=== PATIENT | female | born 1970 | race Caucasian/White ===

== ENCOUNTER → 2016-08-28 | Outpatient (CLI) | payer BC ==
--- NOTE | 2016-08-29 07:53 | MM ---
Reason for exam: screening (asymptomatic). Last mammogram was performed 2 years and 11 months ago. History: Family history of breast cancer in sister at age 44. Benign ultrasound-guided core biopsy of the right breast, October 01, 2001. Cyst aspiration of the right breast. Core biopsy of the right breast. Physical Findings: A clinical breast exam by your physician is recommended on an annual basis and results should be correlated with mammographic findings. MG Screening Mammo w CAD Bilateral CC and MLO view(s) were taken. Prior study comparison: September 23, 2013, bilateral MG diagnostic mammo w CAD BIRDIE. May 29, 2012, bilateral digital screening mammo w/CAD. The breast tissue is heterogeneously dense. This may lower the sensitivity of mammography. There is no discrete abnormality. No significant changes when compared with prior studies. ASSESSMENT: Negative, BI-RAD 1 RECOMMENDATION: Routine screening mammogram of both breasts in 1 year.
== END | disposition home or self-care (01) ==
LOC: RADMAMWWP 07:43
PROVIDERS: ATTEND Family Medicine
DX: Z12.31 Encounter for screening mammogram for malignant neoplasm of breast (principal)

== ENCOUNTER → 2018-04-09 | Outpatient (CLI) | payer BC ==
--- NOTE | 2018-04-09 08:55 | MM ---
Reason for exam: clinical finding. Last mammogram was performed 1 year and 7 months ago. History: Benign ultrasound-guided core biopsy of the right breast, October 01, 2001. Cyst aspiration of the right breast. Core biopsy of the right breast. Physical Findings: Nurse Summary: 1cm nodule in the left breast at 12 o'clock (nurse dw). MG 3D Diag Mammo W/Cad BIRDIE Bilateral CC and MLO view(s) were taken. LM, CC with magnification, and LM with magnification view(s) were taken of the right breast. Prior study comparison: August 28, 2016, bilateral MG screening mammo w CAD. September 23, 2013, bilateral MG diagnostic mammo w CAD BIRDIE. The breast tissue is extremely dense which could obscure a lesion on mammography. There is a 4mm group of linear calcifications in the upper outer quadrant at middle depth. On magnification views these appear linear and pleomorphic. These results were verbally communicated with the patient and result sheet given to the patient on 04/09/18. ASSESSMENT: Suspicious, BI-RAD 4 RECOMMENDATION: Stereotactic core biopsy of the right breast. Called Dr. Pollard with mammographic findings and has scheduled an appointment for the patient for 05/02/18 at 11:[address] Kaur. Biopsy scheduled for 05/07/18 at 8:00. PRELIMINARY REPORT CALLED AND FAXED TO DR. KAUR ON 04/09/18.
--- NOTE | 2018-04-09 08:57 | USB ---
Reason for exam: clinical finding. History: Benign ultrasound-guided core biopsy of the right breast, October 01, 2001. Cyst aspiration of the right breast. Core biopsy of the right breast. US Breast LT Left complete breast ultrasound includes all four quadrants, the retroareolar region and axilla. Finding demonstrates no cystic or solid lesion seen. Dense tissue seen at BB. Islands of dense fibroglandular tissue throughout corresponding to the palpable. No suspicious mass. These results were verbally communicated with the patient and result sheet given to the patient on 04/09/18. ASSESSMENT: Benign, BI-RAD 2 RECOMMENDATION: Routine screening mammogram of both breasts in 1 year. Manage patient on a clinical basis.
== END ==
LOC: RADMAMWWP 06:46
PROVIDERS: ATTEND Family Medicine
DX: N63.20 Unspecified lump in the left breast, unspecified quadrant (principal)
CPT/HCPCS: 77062; 77066

== ENCOUNTER → 2018-05-02 | Outpatient (CLI) | payer BC ==
[2018-05-02 08:25] VITALS: BP 105/62; PULSE 68; RESP 18; TEMP 97.4; BMI 22.2
--- NOTE | 2018-05-02 09:04 | P.GSHP ---
History of Present Illness H&P Date: 05/02/18 Chief Complaint: nodule in the left breast for 1 month Kristin is a 47-year-old female who presents with a complaint of a palpable nodule in the left breast at approximately 12 o'clock position. Her last mammogram was in August 2016. She had a bilateral mammogram and an ultrasound of the left breast performed in March 2018. The patient on nurse examination was noted to have a 1 cm nodule in the left breast at the 12 o'clock position. The patient states that this area remains palpable and she had noted at approximately a month before. The patient's menstrual periods have become somewhat irregular and she missed a period for 3 months but then most recently had a menstrual period approximately a week ago. The palpable abnormality remains present after her period. The patient on mammogram was noted to have a 4 mm groove of linear calcifications in the upper outer quadrant of the right breast. The patient was recommended to have a stereotactic core biopsy of this area. The patient had no lesions of concern noted on the mammogram in the left breast and an ultrasound was performed of the left breast which did not reveal any specific lesions of concern. The patient has no history of any trauma or infection in her breast. The actual area of nodularity does not seem to be tender. Family history: no history of cancer Hormonal History: menarche: 13 : 3, 3 children, first at 21, breast fed: no pain and bleeding menopause: periods are irregular at this time control pills: less than one year hormones: none History: Negative Medical history: 9 negative Social history: Smoking: Negative Alcohol: Negative Drugs:negative - Constitutional Comment: light night sweats Constitutional: Reports night sweats - EENT Comment: wears glasses Eyes: denies blurred vision, denies pain Ears: deny: decreased hearing, tinnitus Ears, nose, mouth and throat: Denies headache, Denies sore throat - Breasts Breasts: bilateral: as per HPI - Cardiovascular Comment: Muscular chest wall pain after lifting at times Cardiovascular: Denies chest pain, Denies shortness of breath - Respiratory Respiratory: Denies cough, Denies 7 - Gastrointestinal Gastrointestinal: Denies abdominal pain, Denies diarrhea, Denies nausea, Denies vomiting - Genitourinary (Female) Genitourinary: Denies dysuria, Denies hematuria - Menstruation Menstruation: Reports cycle variable - Musculoskeletal Musculoskeletal: Denies myalgias - Integumentary Integumentary: Denies pruritus, Denies rash - Neurological Neurological: Denies numbness, Denies weakness - Psychiatric Psychiatric: Denies anxiety, Denies depression - Endocrine Endocrine: Denies fatigue, Denies weight change - Hematologic/Lymphatic Comment: none - Allergic/Immunologic Comment: PCN Allergic/Immunologic: Reports seasonal allergies Past Medical History Past Medical History: No Reported History Additional Past Medical History / Comment(s): Anemia, low iron History of Any Multi-Drug Resistant Organisms: None Reported Past Surgical History: No Surgical Hx Reported Past Anesthesia/Blood Transfusion Reactions: Motion Sickness Smoking Status: Never smoker Past Alcohol Use History: Occasional Past Drug Use History: None Reported Medications and Allergies Home Medications Medication Instructions Recorded Confirmed Type No Known Home Medications 04/26/18 04/26/18 History Allergies Allergy/AdvReac Type Severity Reaction Status Date / Time Penicillins Allergy Rash/Hives Verified 05/02/18 08:25 Surgical - Exam Vital Signs Temp Pulse Resp BP Pulse Ox 97.4 F L 68 18 105/62 99 05/02/18 08:17 05/02/18 08:17 05/02/18 08:17 05/02/18 08:17 05/02/18 08:17 BMI 22.3 - General well developed, well nourished, no distress - Eyes normal ocular movement, no icteric - ENT normal pinna, normal nares, no hearing loss - Neck no masses, trachea midline - Respiratory normal respiratory effort, clear to auscultation - Cardiovascular Rhythm: regular Heart Sounds: normal: S1, S2 - Abdomen Abdomen: soft, non tender, no guarding, no rigid, no rebound - Integumentary Breast examination: Right breast: Multi-positional exam no dominant masses or nodules of concern Right axilla: No adenopathy of concern Left breast: Multi-positional exam increased nodularity at the 12 o'clock position Left axilla: No adenopathy of concern Normal turger - Neurologic no disoriented, no combative - Musculoskeletal normal gait, normal posture - Psychiatric oriented to time, oriented to person, oriented to place, speech is normal, memory intact Breast examination: Right breast: Multi-positional exam no dominant masses or nodules of concern Right axilla: No adenopathy of concern Left breast: Multi-positional exam increased nodularity at the 12 o'clock position Left axilla: No adenopathy of concern Results Mammogram and ultrasound of breast reviewed Assessment and Plan Assessment: Impression: 1. 47-year-old perimenopausal female with palpable abnormality in left breast 2. Radiographic abnormality right breast Plan: 1. Core biopsy of palpable abnormality left breast 2. Stereotactic core biopsy radiographic abnormality right breast The risk and benefits of both core biopsy of palpable abnormality and stereotactic core biopsy were discussed with the patient. She wishes to proceed in this is scheduled for the near future. The patient will follow-up approximately a week after the biopsies for the results. Cc: Dr. Pollard
== END | disposition home or self-care (01) ==
LOC: WWCWWP 08:07
PROVIDERS: ATTEND Surgery
DX: Z53.9 Procedure and treatment not carried out, unspecified reason (principal)

== ENCOUNTER → 2018-05-07 | Day surgery (SDC) | payer BC ==
[2018-05-07 07:31] VITALS: RESP 16; BMI 22.2
--- NOTE | 2018-05-07 08:38 | P.OP ---
Date of Procedure: 05/07/18 Preoperative Diagnosis: 4 mm linear calcifications upper outer quadrant middle depth of the right breast Postoperative Diagnosis: Same Procedure(s) Performed: Right breast stereotactic core biopsy Anesthesia: local Surgeon: Erlinda Kaur Pathology: other (Breast tissue) Condition: stable Disposition: same day Indications for Procedure: Mammographic abnormality Description of Procedure: Kristin is a 47-year-old female who was noted to have linear calcifications in the right breast which were of concern. It was recommended she undergo a stereotactic core biopsy. Risk and benefits of the procedure were discussed with the patient. She wished to proceed. The patient was taken to the stereotactic core biopsy room. She was positioned on the low rad table such that the lesion which was in the right breast in the upper outer quadrant area approximately middle depth could be targeted. The approach was a lateral to medial approach. After the lesion had been identified it was targeted on the stereo unit. The skin was prepped using Betadine. 20 mL of 1% lidocaine were used to anesthetize the area of concern. The needle was driven to the correct coordinates of both pre-and post fire films were obtained. The location of the needle was correct. Approximately 12 core samples were obtained. Radiograph of the samples revealed the area of concern had been removed showing calcification within the sample. A 9-gauge vacuum-assisted rotating core biopsy needle was utilized. Following this a secure marked Top-investigative reporter was placed and noted to be in the correct location. Patient tolerated procedure in stable condition. The specimen was sent to pathology. The patient will follow with Dr. Morejon in 1 week. Cc: Dr. Pollard
[2018-05-07 09:07] VITALS: BP 95/61; PULSE 72; TEMP 98.1
--- NOTE | 2018-05-07 10:33 | MM ---
EXAMINATION TYPE: MG stereo VAD BX RT DATE OF EXAM: 05/07/2018 COMPARISON: Prior mammogram April 09, 2018 and older studies. CLINICAL HISTORY: Abnormal mammogram. TECHNIQUE: Stereotactic guided core biopsy of right breast. FINDINGS: The procedure of stereotactic guided core biopsy was explained to the patient. Benefits, a lternatives, and risks were discussed. An informed consent was then obtained. [facility] was [facility]. Shortness pathway was cranial approach. I performed the localization, then surgeon, Dr. Kaur performed the remainder of the procedure. A vacuum BioStratum biopsy gun was used to obtain multiple core samples. The patient tolerated the procedure well without any immediate complication. The patient was kept in the radiology department for short stay after the procedure and then discharged home in stable condi tion. Targeted calcifications are identified in specimen mammogram. Post biopsy mammogram shows the clip to appear in satisfactory position relative to the targeted area of concern on the preprocedure images. IMPRESSION: SUCCESSFUL, UNCOMPLICATED STEREOTACTIC GUIDED CORE BIOPSY OF AREA OF CONCERN IN THE RIGHT BREAST, FUL L PATHOLOGY RESULTS TO FOLLOW. Low to intermediate index of suspicion noted at time of procedure.
== END | disposition home or self-care (01) ==
LOC: RADMAMWWP 07:10
PROVIDERS: ATTEND Surgery
DX: N60.21 Fibroadenosis of right breast (principal); N60.01 Solitary cyst of right breast; Z88.0 Allergy status to penicillin
CPT/HCPCS: 88305; 19081; J2001

== ENCOUNTER → 2018-05-16 | Outpatient (CLI) | payer BC ==
[2018-05-16 08:38] VITALS: BP 109/61; PULSE 79; RESP 18; TEMP 96.9; BMI 21.4
--- NOTE | 2018-05-16 09:32 | P.PN ---
Subjective Progress Note Date: 05/16/18 Kristin is a 47-year-old white female status post right breast stero-tactic core biopsy. Pathology was benign revealing fibrocystic changes and calcifications. The patient states she has had some mild discomfort at the biopsy site but this is improved. Objective - Vital Signs Vital signs: Vital Signs Temp 96.9 F L 05/16/18 08:33 Pulse 79 05/16/18 08:33 Resp 18 05/16/18 08:33 BP 109/61 05/16/18 08:33 Pulse Ox 98 05/16/18 08:33 Intake & Output 05/15/18 05/16/18 05/16/18 18:59 06:59 18:59 Weight 49.895 kg - Constitutional General appearance: Present: average body habitus - EENT Eyes: Present: EOMI ENT: Present: hearing grossly normal - Respiratory Respiratory: bilateral: CTA - Cardiovascular Rhythm: regular Heart sounds: normal: S1, S2 - Integumentary Integumentary Comment(s): Stero biopsy puncture site right breast mild ecchymosis otherwise clean and dry no evidence of any hematoma of concern or any infection - Psychiatric Psychiatric: Present: A&O x's 3, appropriate affect, intact judgment & insight Assessment and Plan Assessment: Impression: 1. Patient status post her biopsy right breast comes for results pathology benign 2. Patient doing well at this time Plan: 1. Repeat right breast mammogram in 6 months time with physician exam at that time Cc: Dr. Pollard
== END ==
LOC: WWCWWP 08:22
PROVIDERS: ATTEND Surgery
DX: Z53.9 Procedure and treatment not carried out, unspecified reason (principal)

== ENCOUNTER → 2018-11-05 | Outpatient (CLI) | payer BC ==
--- NOTE | 2018-11-05 07:36 | MM ---
Reason for exam: follow-up at short interval from prior study. Last mammogram was performed 7 months ago. History: Patient is postmenopausal. Benign MG stereo VAD BX RT of the right breast, May 07, 2018. Benign ultrasound-guided core biopsy of the right breast, October 01, 2001. Cyst aspiration of the right breast. Core biopsy of the right breast. Physical Findings: Nurse did not find any significant physical abnormalities on exam. MG Diagnostic Mammo RT w CAD CC and MLO view(s) were taken of the right breast. Prior study comparison: April 09, 2018, bilateral MG 3d diag mammo w/cad BIRDIE. August 28, 2016, bilateral MG screening mammo w CAD. The breast tissue is heterogeneously dense. This may lower the sensitivity of mammography. No significant new findings when compared with previous films. These results were verbally communicated with the patient and result sheet given to the patient on 11/05/18. ASSESSMENT: Benign, BI-RAD 2 RECOMMENDATION: Routine screening mammogram of both breasts in 6 months. Back on schedule.
== END | disposition home or self-care (01) ==
LOC: RADMAMWWP 06:52
PROVIDERS: ATTEND Surgery
DX: R92.8 Other abnormal and inconclusive findings on diagnostic imaging of breast (principal)
CPT/HCPCS: 77065

== ENCOUNTER → 2018-11-14 | Outpatient (CLI) | payer BC ==
--- NOTE | 2018-11-14 14:14 | P.PN ---
Subjective Progress Note Date: 11/14/18 Kristin is a 48-year-old female who underwent a stereotactic core biopsy in April 2018. Pathology was benign. She presents today having had a repeat right breast mammogram. Repeat right breast mammogram was done on . This was felt to be benign BIRADS 2 and repeat bilateral mammogram in 6 months recommended. The pathology was fibrocystic changes including sclerosing adenosis, cyst, fibrosis and calcifications. The patient has no complaints related to her breasts. Family History: no cancer Hormonal history: Menarche:12 , breast fed: short time, age at first : 21 periods LMP MARCH BCP: less than one year hormones: none Surgical history: Negative Medical history: Negative Social history: Smoking: Negative Alcohol: Negative Drugs: Negative Review of systems: HEENT: Wears glasses Lungs: Negative Heart: Negative however did have muscular chest pain after lifting at times GI: Negative : Negative Musculoskeletal: Negative Skin: Negative Neurologic: Negative Psychiatric: Negative Endocrine: Negative ALLERGIES: Seasonal, PCN Objective - Vital Signs Vital signs: Vital Signs Temp 98.1 F 11/14/18 13:42 Pulse 60 11/14/18 13:42 Resp 16 11/14/18 13:42 BP 108/67 11/14/18 13:42 Pulse Ox 100 11/14/18 13:42 Intake & Output 11/13/18 11/14/18 11/14/18 18:59 06:59 18:59 Weight 51.71 kg - Exam BMI 22.3 - Constitutional General appearance: Present: average body habitus - EENT Eyes: Present: EOMI ENT: Present: hearing grossly normal - Neck Neck: Present: normal ROM - Respiratory Respiratory: bilateral: CTA - Cardiovascular Rhythm: regular Heart sounds: normal: S1, S2 - Gastrointestinal General gastrointestinal: Present: soft - Integumentary Integumentary: Present: normal turgor - Musculoskeletal Musculoskeletal: Present: gait normal - Psychiatric Psychiatric: Present: A&O x's 3, appropriate affect, intact judgment & insight - Additional findings Additional findings: breast exam: right breast: Multi-positional exam no dominant masses or nodules of concern, well-healed scar from prior stereotactic core biopsy Right axilla: No adenopathy of concern Left breast: Multi-positional exam dominant masses or nodules of concern Left axilla: No adenopathy of concern Assessment and Plan Assessment: Impression: 1. Fibrocystic breast changes 2. Prior stereotactic core biopsy Plan: 1. Repeat bilateral mammogram in 6 months to be back on schedule 2. Follow-up in 6 months 2. Follow up sooner if any questions of concern CC:Dr. Meghana Pollard
== END | disposition home or self-care (01) ==
DX: Z53.9 Procedure and treatment not carried out, unspecified reason (principal)

== ENCOUNTER → 2019-05-08 | Outpatient (CLI) | payer BC ==
--- NOTE | 2019-05-09 11:08 | MM ---
Reason for exam: screening (asymptomatic). Last mammogram was performed 6 months ago. History: Patient is postmenopausal. Benign MG stereo VAD BX RT of the right breast, May 07, 2018. Benign ultrasound-guided core biopsy of the right breast, October 01, 2001. Cyst aspiration of the right breast. Core biopsy of the right breast. Physical Findings: A clinical breast exam by your physician is recommended on an annual basis and results should be correlated with mammographic findings. MG Screening Mammo w CAD Bilateral CC and MLO view(s) were taken. Prior study comparison: November 05, 2018, right breast MG diagnostic mammo RT w CAD. April 09, 2018, bilateral MG 3d diag mammo w/cad BIRDIE. The breast tissue is extremely dense which could obscure a lesion on mammography. No suspicious abnormality. Right biopsy marker noted. No significant changes when compared with prior studies. ASSESSMENT: Negative, BI-RAD 1 RECOMMENDATION: Routine screening mammogram of both breasts in 1 year.
== END ==
LOC: RADMAMWWP 07:57
PROVIDERS: ATTEND Surgery
DX: Z12.31 Encounter for screening mammogram for malignant neoplasm of breast (principal)
CPT/HCPCS: 77067

== ENCOUNTER → 2019-05-22 | Outpatient (CLI) | payer BC ==
[2019-05-22 09:09] VITALS: BP 103/66; PULSE 79; RESP 16; TEMP 98.1
--- NOTE | 2019-05-22 09:22 | P.PN ---
Subjective Progress Note Date: 05/22/19 Principal diagnosis: fibrocystic breast changes/pain left breast Kristin is a 48-year-old female who underwent a stereotactic core biopsy in April 2018. Pathology was benign. She presents today having had a repeat right breast mammogram. [place] [address]. This was felt to be benign BIRADS 2 and repeat bilateral mammogram in 6 months recommended. The pathology was fibrocystic changes including sclerosing adenosis, cyst, fibrosis and calcifications. The patient has no complaints related to her breasts. She had a bilateral mammogram performed on . This was benign BIRADS 1. The patient was noted in the right breast at the biopsy marker from her prior stereotactic core biopsy site. She does complain of transiet sharp pain in the left breast about once a month. She is not sure if it is related to anything. She had not had a period for 5 months. It is not cyclical. It does not spread any place. It is only when laying on her stomach. She is uncertain as to how long it has been going on. She does not complain of any lumps masses or nipple discharge. Caffeine: once a day nicotine: none chocolate: daily Family History: no cancer Hormonal history: Menarche:12 , breast fed: short time, age at first : 21 periods LMP November 2018 BCP: less than one year hormones: none Surgical history: stero biopsy of right breast Medical history: Negative Social history: Smoking: Negative Alcohol: Negative Drugs: Negative Review of systems: HEENT: Wears glasses Lungs: Negative Heart: Negative however did have muscular chest pain after lifting at times breast : as per HPI GI: Negative : Negative Musculoskeletal: Negative Skin: Negative Neurologic: Negative Psychiatric: Negative Endocrine: Negative ALLERGIES: Seasonal, PCN Objective - Vital Signs Vital signs: Intake & Output 05/21/19 05/22/19 05/22/19 18:59 06:59 18:59 Weight 49.895 kg - Exam BMI 21.5 - Constitutional General appearance: Present: average body habitus - EENT Eyes: Present: EOMI ENT: Present: hearing grossly normal - Neck Neck: Present: normal ROM - Respiratory Respiratory: bilateral: CTA - Cardiovascular Rhythm: regular Heart sounds: normal: S1, S2 - Gastrointestinal General gastrointestinal: Present: normal bowel sounds, soft - Integumentary Integumentary: Present: normal turgor - Musculoskeletal Musculoskeletal: Present: gait normal - Psychiatric Psychiatric: Present: A&O x's 3, appropriate affect, intact judgment & insight - Additional findings Additional findings: breast exam: BRA 32B inspection: No nipple inversion, no skin changes of concern Palpation: Right breast: Multiple positional exam no dominant masses or nodules of concern fibrocystic changes Right axilla: No adenopathy of concern Left breast: Multi-positional exam or dominant mass or notches of concern fibrocystic changes Left axilla: No adenopathy of concern Assessment and Plan Assessment: Impression: 1. Bilateral mammogram results reviewed recommendation repeat mammogram in 1 year 2. Fibrocystic breast changes 3. Left breast fleeting discomfort most likely fibrocystic in nature 4. Perimenopausal Plan: 1. FSH and LH levels 2. Bilateral mammogram in 1 year 3. To call if notes any areas of concern in her breast We discussed causes of fibrocystic breast discomfort which would include caffeine and chocolate intake. The patient understands and will consider this. CC: Dr. Pollard encounter 20 minutes, > 50% of time in planning and counselling Time with Patient: Less than 30
[2019-05-22 16:48] LABS: Follicle Stimulating Hormone 90.5 mIU/mL; Luteinizing Hormone 49.9 mIU/mL
== END | disposition home or self-care (01) ==
LOC: WWCWWP 08:52
PROVIDERS: ATTEND Surgery
DX: N95.9 Unspecified menopausal and perimenopausal disorder (principal)
CPT/HCPCS: 36415; 83001; 83002

== ENCOUNTER → 2020-05-12 | Outpatient (CLI) | payer BC ==
--- NOTE | 2020-05-13 13:21 | MM ---
Reason for exam: screening (asymptomatic). Last mammogram was performed 1 year ago. History: Patient is postmenopausal. Benign MG stereo VAD BX RT of the right breast, May 07, 2018. Benign ultrasound-guided core biopsy of the right breast, October 01, 2001. Cyst aspiration of the right breast. Core biopsy of the right breast. Physical Findings: A clinical breast exam by your physician is recommended on an annual basis and results should be correlated with mammographic findings. MG Screening Mammo w CAD Bilateral CC and MLO view(s) were taken. Prior study comparison: May 08, 2019, bilateral MG screening mammo w CAD. November 05, 2018, right breast MG diagnostic mammo RT w CAD. The breast tissue is heterogeneously dense. This may lower the sensitivity of mammography. Previous mammotome biopsy in the right breast. No significant changes when compared with prior studies. ASSESSMENT: Benign, BI-RAD 2 RECOMMENDATION: Routine screening mammogram of both breasts in 1 year.
== END | disposition home or self-care (01) ==
LOC: RADMAMWWP 07:43
PROVIDERS: ATTEND Surgery
DX: Z12.31 Encounter for screening mammogram for malignant neoplasm of breast (principal)
CPT/HCPCS: 77067

== ENCOUNTER → 2020-05-13 | Outpatient (CLI) | payer BC ==
[2020-05-13 10:50] VITALS: BP 106/64; PULSE 65; RESP 16; TEMP 97.9
--- NOTE | 2020-05-13 11:06 | P.PN ---
Subjective Progress Note Date: 05/13/20 Principal diagnosis: fibrocystic breast changes fibrocystic breast changes/pain left breast Kristin is a 48-year-old female who underwent a stereotactic core biopsy in April 2018. Pathology was benign. She presents today having had a repeat right breast mammogram. [place] [address]. This was felt to be benign BIRADS 2 and repeat bilateral mammogram in 6 months recommended. The pathology was fibrocystic changes including sclerosing adenos is, cyst, fibrosis and calcifications. The patient has no complaints related to her breasts. She had a bilateral mammogram performed on . This was benign BIRADS 2. The patient was noted in the right breast at the biopsy marker from her prior stereotactic core biopsy site. She has dense breast. She does not complain of any lumps, masses, or nodules in her breast. No nipple discharge or changes. Transiet sharp pain in the left breast about once a month noted a year ago has resolved. She had not had a period for 12 months. It is not cyclical. FSH done 05-22-19 was 90.5, and LH 49.9. Caffeine: once a day, 2 cups of coffee/day nicotine: none chocolate: daily Family History: no cancer Hormonal history: Menarche:12 , breast fed: short time, age at first : 21 periods LMP November 2018 BCP: less than one year hormones: none Surgical history: stero biopsy of right breast Medical history: Negative Social history: Smoking: Negative Alcohol: Negative Drugs: Negative Review of systems: HEENT: Wears glasses Lungs: Negative Heart: Negative however did have muscular chest pain after lifting at times breast : as per HPI GI: Negative : Negative Musculoskeletal: Negative Skin: Negative Neurologic: Negative Psychiatric: Negative Endocrine: Negative ALLERGIES: Seasonal, PCN Objective - Vital Signs Vital signs: Vital Signs Temp 97.9 F 05/13/20 10:44 Pulse 65 05/13/20 10:44 Resp 16 05/13/20 10:44 BP 106/64 05/13/20 10:44 Pulse Ox 99 05/13/20 10:44 Intake & Output 05/12/20 05/13/20 05/13/20 18:59 06:59 18:59 Weight 51.256 kg - Exam BMI 22.8 - Constitutional General appearance: Present: average body habitus - EENT Eyes: Present: EOMI ENT: Present: hearing grossly normal - Neck Neck: Present: normal ROM - Respiratory Respiratory: bilateral: CTA - Cardiovascular Rhythm: regular Heart sounds: normal: S1, S2 - Gastrointestinal General gastrointestinal: Present: normal bowel sounds, soft - Integumentary Integumentary: Present: normal turgor - Musculoskeletal Musculoskeletal: Present: gait normal - Psychiatric Psychiatric: Present: A&O x's 3, appropriate affect, intact judgment & insight - Additional findings Additional findings: breast exam: BRA 34B inspection: grade 2 ptosis bilateral palpation: Breasts: Multiple positional exam fibrocystic changes, no dominant masses or nodules of concern, dense breast Right axilla: No adenopathy of concern Left breast: Multiple positional exam fibrocystic changes, no dominant masses or nodules of concern, dense breast Left axilla: No adenopathy of concern Assessment and Plan Assessment: Impression: 1. Fibrocystic breast changes 2. Postmenopausal Plan: 1. Repeat bilateral mammogram suggest 3-D secondary to dense breast in 1 year with physician exam 2. We discussed caffeine possibly exacerbating fibrocystic changes and would recommend lifestyle modification Cc: Dr. Pollard encounter 15 minutes, > 50% of time in planning and counselling
== END | disposition home or self-care (01) ==
LOC: WWCWWP 10:29
PROVIDERS: ATTEND Surgery
DX: Z53.9 Procedure and treatment not carried out, unspecified reason (principal)

== ENCOUNTER → 2021-01-10 | Outpatient (CLI) | payer BC ==
--- NOTE | 2021-01-11 08:16 | XR ---
EXAMINATION TYPE: XR thoracic spine complete DATE OF EXAM: 01/10/2021 COMPARISON: NONE HISTORY: Pain TECHNIQUE: 3 views submitted FINDINGS: Alignment is anatomic. There is no compression deformities. Vertebral body height and disc interspa [place] are maintained. Minimal curvature of the spine. Multilevel mild degenerative disc disease and hy pertrophic spurring. IMPRESSION: 1. Multilevel mild degenerative disc disease..
== END | disposition home or self-care (01) ==
LOC: RADXRMAIN 16:56
PROVIDERS: ATTEND Family Medicine
DX: M51.34 Other intervertebral disc degeneration, thoracic region (principal)
CPT/HCPCS: 72072

== ENCOUNTER → 2021-05-23 | Outpatient (CLI) | payer BC ==
--- NOTE | 2021-05-24 10:30 | MM ---
Reason for exam: screening (asymptomatic). Last mammogram was performed 1 year ago. History: Patient is postmenopausal. Benign MG stereo VAD BX RT of the right breast, May 07, 2018. Benign ultrasound-guided core biopsy of the right breast, October 01, 2001. Cyst aspiration of the right breast. Core biopsy of the right breast. Physical Findings: A clinical breast exam by your physician is recommended on an annual basis and results should be correlated with mammographic findings. MG 3D Screening Mammo W/Cad Bilateral CC and MLO view(s) were taken. XCCL view(s) were taken of the left breast. Prior study comparison: May 12, 2020, bilateral MG screening mammo w CAD. May 08, 2019, bilateral MG screening mammo w CAD. The breast tissue is heterogeneously dense. This may lower the sensitivity of mammography. Stable benign calcifications. There is no discrete abnormality. No significant changes when compared with prior studies. ASSESSMENT: Benign, BI-RAD 2 RECOMMENDATION: Routine screening mammogram of both breasts in 1 year.
== END | disposition home or self-care (01) ==
LOC: RADMAMWWP 13:03
PROVIDERS: ATTEND Surgery
DX: Z12.31 Encounter for screening mammogram for malignant neoplasm of breast (principal); Z78.0 Asymptomatic menopausal state
CPT/HCPCS: 77063; 77067

== ENCOUNTER → 2021-06-02 | Outpatient (CLI) | payer BC ==
[2021-06-02 16:29] VITALS: BP 93/60; PULSE 68; RESP 18; TEMP 97.9
--- NOTE | 2021-06-02 16:37 | P.PN ---
Subjective Progress Note Date: 06/02/21 Principal diagnosis: fibrocystic breast changes fibrocystic breast changes fibrocystic breast changes/pain left breast Kristin is a 50-year-old female who underwent a stereotactic core biopsy in April 2018. Pathology was benign. She had a bilateral mammogram performed on . This was benign BIRADS 2. She does not complain of any lumps, masses, or nodules in her breast. No nipple discharge or changes. She had a bilateral mammogram on 05-23-21 which was benign BIRAD 2. She does not have any lumps masses or nodules she is concerned about. Caffeine: once a day, 2 cups of coffee/day nicotine: none chocolate: daily Family History: no cancer Hormonal history: Menarche:12 , breast fed: short time, age at first : 21 periods LMP November 2018 BCP: less than one year hormones: none Surgical history: stero biopsy of right breast Medical history: Negative Social history: Smoking: Negative Alcohol: Negative Drugs: Negative Review of systems: HEENT: Wears glasses Lungs: Negative Heart: Negative however did have muscular chest pain after lifting at times breast : as per HPI GI: Negative : Negative Musculoskeletal: Negative Skin: Negative Neurologic: Negative Psychiatric: Negative Endocrine: Negative ALLERGIES: Seasonal, PCN Objective - Vital Signs Vital signs: Vital Signs Temp 97.9 F 06/02/21 16:23 Pulse 68 06/02/21 16:23 Resp 18 06/02/21 16:23 BP 93/60 06/02/21 16:23 Pulse Ox 97 06/02/21 16:23 Intake & Output 06/01/21 06/02/21 06/02/21 18:59 06:59 18:59 Weight 51.71 kg - Exam BMI 23 - Constitutional General appearance: Present: cooperative - EENT Eyes: Present: EOMI ENT: Present: hearing grossly normal - Neck Neck: Present: normal ROM - Respiratory Respiratory: bilateral: CTA - Cardiovascular Rhythm: regular Heart sounds: normal: S1, S2 - Gastrointestinal General gastrointestinal: Present: soft - Integumentary Integumentary: Present: normal turgor - Musculoskeletal Musculoskeletal: Present: gait normal - Psychiatric Psychiatric: Present: A&O x's 3, appropriate affect, intact judgment & insight - Additional findings Additional findings: Breast Exam: BRA: 34A inspection: bilateral grade 1 ptosis palpation: right breast: Multi-positional exam fibrocystic changes no dominant masses or nodules of concern Right axilla: No adenopathy of concern Left breast: Multi-positional exam fibrocystic changes no dominant masses or nodules of concern Left axilla: No adenopathy of concern Assessment and Plan Assessment: Impression: Fibrocystic breast changes Plan: Bilateral mammogram in 1 year with appointment Patient to call if any questions or concerns sooner CC: Dr. Pollard
== END ==
LOC: WWCWWP 16:08
PROVIDERS: ATTEND Surgery
DX: N60.11 Diffuse cystic mastopathy of right breast (principal); N60.12 Diffuse cystic mastopathy of left breast; Z88.0 Allergy status to penicillin

== ENCOUNTER → 2022-04-19 | Outpatient (CLI) | payer BC ==
--- NOTE | 2022-04-19 22:33 | MR ---
EXAMINATION TYPE: MR thoracic spine wo con DATE OF EXAM: 04/19/2022 6:57 PM COMPARISON: No priors. INDICATION: Patient age:Female; 51 years old; Reason for study: M54.6, M47.814, M54.50, M47.816, M41.26; TECHNIQUE: Multi planar, multi sequence imaging was performed utilizing: T1-weighted and T2-weighted of the thoracic spine. The patient was not given Gadolinium. IV Contrast: None FINDINGS: The thoracic vertebral bodies have preserved heights and alignment. The osseous structure have normal signal intensity. Thoracic spinal cord appears unremarkable. There is no evidence of extradural defe cts or central spinal canal narrowing at any thoracic vertebral body level. Intervertebral discs dem onstrate normal signal intensity. Mild hypertrophy changes at the right T10-T11 facet joint which mildly narrows the spinal canal. IMPRESSION: No evidence for bony edema, significant degeneration changes, or significant spinal canal or neural f oraminal stenosis. No finding to correlate patient's back pain.
== END | disposition home or self-care (01) ==
LOC: RADMRIMAIN 17:19
PROVIDERS: ATTEND Physical Medicine & Rehabilitation
DX: M47.815 Spondylosis without myelopathy or radiculopathy, thoracolumbar region (principal); M41.26 Other idiopathic scoliosis, lumbar region
CPT/HCPCS: 72146

== ENCOUNTER → 2022-05-25 | Outpatient (CLI) | payer BC ==
--- NOTE | 2022-05-26 09:09 | MM ---
Reason for Exam: Screening (asymptomatic). Last mammogram was performed 1 year(s) and 1 month(s) ago. Patient History: Menarche at age 12. First Full-Term at age 20. Cyst Aspiration on the Right side. Core Biopsy on the Right side. 05/07/2018, Benign Core Biopsy on the right side. 10/01/2001, Benign Ultrasound-Guided Core Biopsy on the right side. Last menstrual period: 01/11/2022 Risk Values: Kena 5 year model risk: 1.4%. NCI Lifetime model risk: 11.5%. Prior Study Comparison: 05/08/2019 Bilateral Screening Mammogram, [facility]. 05/12/2020 Bilateral Screening Mammogram, [facility]. 05/23/2021 Bilateral Screening Mammogram, [facility]. Tissue Density: The breast tissue is heterogeneously dense. This may lower the sensitivity of mammography. Findings: Analyzed By CAD. There is no suspicious group of microcalcifications or new suspicious mass in either breast. Overall Assessment: Benign, BI-RAD 2 Management: Screening Mammogram of both breasts in 1 year. A clinical breast exam by your physician is recommended on an annual basis and results should be correlated with mammographic findings. Electronically signed and approved by: Josh Combs M.D. Radiologis
== END | disposition home or self-care (01) ==
LOC: RADMAMWWP 16:03
PROVIDERS: ATTEND Surgery
DX: Z12.31 Encounter for screening mammogram for malignant neoplasm of breast (principal); Z98.890 Other specified postprocedural states
CPT/HCPCS: 77067

== ENCOUNTER 2022-12-22 11:01 | Day surgery (SDC) | payer BC ==
[2022-12-19 14:28] VITALS: BMI 21.4
[2022-12-22] MEDS ORDERED: LIDOCAINE 1% (10MG/ML) FOR IV START INTRADERMA PRN (11:22)
[2022-12-22] MEDS ORDERED: ONDANSETRON 4 MG/2 ML VIAL IVP PRN (11:22)
[2022-12-22] MEDS: LACTATED RINGERS 1,000 ML IV SCH ×2 (11:41→13:01)
[2022-12-22 12:01] VITALS: TEMP 98
[2022-12-22] MEDS ORDERED: PROPOFOL 10 MG/ML 20 ML VIAL IV ONE (13:02)
--- NOTE | 2022-12-22 13:17 | P.PCN ---
Date of Procedure: 12/22/22 Procedure(s) Performed: BRIEF HISTORY: Patient is a 52-year-old pleasant female scheduled for an elective colonoscopy as a part of screening for colon cancer. PROCEDURE PERFORMED: Colonoscopy. PREOPERATIVE DIAGNOSIS: Screening for colon cancer. IV sedation per Anesthesia. PROCEDURE: After informed consent was obtained, the patient, was brought into the endoscopy unit. IV sedation was administered by Anesthesia under continuous monitoring. Digital rectal examination was normal. Initially the Olympus CF-160 flexible video colonoscope was then inserted in the rectum, gradually advanced into the cecum without any difficulty. Careful examination was performed as the scope was gradually being withdrawn. Ileocecal valve and the appendiceal orifice were visualized and appeared normal. Prep was excellent. Mucosa of the cecum, ascending colon, transverse colon, descending colon, sigmoid colon, and rectum appeared normal. Retroflexion was performed in the rectum and no lesions were seen. The patient tolerated the procedure well. IMPRESSION: Normal-appearing colon from rectum to cecum with no evidence of colorectal neoplasia. RECOMMENDATIONS: Findings of this examination were discussed with the patient well as her family.. She was advised to have a repeat surveillance colonoscopy in 10 years.
[2022-12-22 13:22] VITALS: RESP 16
[2022-12-22 13:45] VITALS: BP 98/63; PULSE 77
== END 2022-12-22 14:07 | disposition home or self-care (01) ==
LOC: ORWHC2ENDO 11:01
PROVIDERS: ATTEND Internal Medicine Gastroenterology
DX: Z12.11 Encounter for screening for malignant neoplasm of colon (principal); Z88.0 Allergy status to penicillin; Z98.890 Other specified postprocedural states; Z79.899 Other long term (current) drug therapy
CPT/HCPCS: 45378; J2704; G0121

== ENCOUNTER → 2023-07-06 | Outpatient (CLI) | payer BC | LOC: WWCWWP 08:20 | PROVIDERS: ATTEND Surgery | DX: Z53.21 Procedure and treatment not carried out due to patient leaving prior to being seen by health care provider (principal) ==

== ENCOUNTER → 2023-07-11 | Outpatient (CLI) | payer BC ==
--- NOTE | 2023-07-12 08:21 | MM ---
Reason for Exam: Screening (asymptomatic). Last mammogram was performed 1 year(s) and 1 month(s) ago. Patient History: Menarche at age 12. First Full-Term at age 20. Postmenopausal. Cyst Aspiration on the Right side. Core Biopsy on the Right side. 05/07/2018, Benign Core Biopsy on the right side. 10/01/2001, Benign Ultrasound-Guided Core Biopsy on the right side. Risk Values: Kena 5 year model risk: 1.5%. NCI Lifetime model risk: 11.3%. Prior Study Comparison: 05/12/2020 Bilateral Screening Mammogram, [facility]. 05/23/2021 Bilateral Screening Mammogram, [facility]. 05/25/2022 Bilateral MG screening mammo w CAD, [facility]. Tissue Density: The breasts are heterogeneously dense, which may obscure small masses. Findings: Analyzed By CAD. Right breast biopsy clip. Right breast: There is no suspicious group of microcalcifications or new suspicious mass. Left breast: There is no suspicious group of microcalcifications or new suspicious mass. There is no suspicious group of microcalcifications or new suspicious mass. Overall Assessment: Benign, BI-RAD 2 Management: Screening Mammogram of both breasts in [address] [facility] will attempt to contact patient to return for supplemental views and ultrasound if indicated. Patient should continue monthly self-breast exams. A clinical breast exam by your physician is recommended on an annual basis. This exam should not preclude additional follow-up of suspicious palpable abnormalities. Note on Kena scores and lifetime risk: 1. A Kena score greater than 3% is considered moderate risk. If this is the case, consider specialist referral to assess eligibility for a risk reducing agent. 2. If overall lifetime risk for the development of breast cancer is 20% or higher, the patient may qualify for future screening with alternating mammogram and breast MRI. Electronically signed and approved by: Errol Eduardo DO
== END | disposition home or self-care (01) ==
LOC: RADMAMWWP 07:14
PROVIDERS: ATTEND Surgery
DX: Z12.31 Encounter for screening mammogram for malignant neoplasm of breast (principal); Z78.0 Asymptomatic menopausal state
CPT/HCPCS: 77067

== ENCOUNTER → 2023-08-02 | Outpatient (CLI) | payer BC ==
--- NOTE | 2023-08-02 09:15 | P.PN ---
Subjective Progress Note Date: 08/02/23 Principal diagnosis: Fibrocystic breast changes 08-02-23 Principal diagnosis: fibrocystic breast changes/pain left breast Kristin is a 52-year-old female who underwent a stereotactic core biopsy in April 2018. Pathology was benign. She had a bilateral mammogram performed on 07-11-23. This was benign BIRADS 2. It was personally reviewed She does not complain of any lumps, masses, or nodules in her breast. No nipple discharge or changes. Caffeine: once a day, 2 cups of coffee/day nicotine: none chocolate: daily Family History: no cancer Hormonal history: Menarche:12 , breast fed: short time, age at first : 21 periods LMP November 2018 BCP: less than one year hormones: none Surgical history: stero biopsy of right breast Medical history: back pain/arthritis Social history: Smoking: Negative Alcohol: Negative Drugs: Negative Review of systems: HEENT: Wears glasses Lungs: Negative Heart: Negative however did have muscular chest pain after lifting at times breast : as per HPI GI: Negative : Negative Musculoskeletal: Negative Skin: Negative Neurologic: Negative Psychiatric: Negative Endocrine: Negative ALLERGIES: Seasonal, PCN Objective - Constitutional General appearance: Present: cooperative - EENT Eyes: Present: EOMI ENT: Present: hearing grossly normal - Neck Neck: Present: normal ROM - Respiratory Respiratory: bilateral: CTA - Cardiovascular Rhythm: regular Heart sounds: normal: S1, S2 - Integumentary Integumentary: Present: normal turgor - Musculoskeletal Musculoskeletal: Present: gait normal - Psychiatric Psychiatric: Present: A&O x's 3, appropriate affect, intact judgment & insight - Additional findings Additional findings: Breast Exam: BRA: 34A inspection: bilateral grade 1 ptosis palpation: right breast: Multi-positional exam fibrocystic changes no dominant masses or nodules of concern Right axilla: No adenopathy of concern Left breast: Multi-positional exam fibrocystic changes no dominant masses or nodules of concern Left axilla: No adenopathy of concern Assessment and Plan Assessment: Impression: Fibrocystic breast changes back pain/arthritis bilatearl mammogram on 07-11-23 BIRAD 2 Plan: Bilateral mammogram in 1 year with appointment Patient to call if any questions or concerns sooner CC: Dr. Pollard
[2023-08-02 09:29] VITALS: BP 96/67; PULSE 89; RESP 17; TEMP 97.9
== END ==
LOC: WWCWWP 08:45
PROVIDERS: ATTEND Surgery
DX: R92.8 Other abnormal and inconclusive findings on diagnostic imaging of breast (principal); N60.11 Diffuse cystic mastopathy of right breast; N60.12 Diffuse cystic mastopathy of left breast; M19.90 Unspecified osteoarthritis, unspecified site; M54.9 Dorsalgia, unspecified; M51.9 Unspecified thoracic, thoracolumbar and lumbosacral intervertebral disc disorder; N64.4 Mastodynia; Z88.0 Allergy status to penicillin

== ENCOUNTER → 2024-07-23 | Outpatient (CLI) | payer BC, OTHER ==
--- NOTE | 2024-07-23 09:55 | MM ---
Reason for Exam: Screening (asymptomatic). Last mammogram was performed 1 year(s) and 1 month(s) ago. Patient History: Menarche at age 12. First Full-Term at age 20. Postmenopausal. Cyst Aspiration on the Right side. Core Biopsy on the Right side. 05/07/2018, Benign Core Biopsy on the right side. 10/01/2001, Benign Ultrasound-Guided Core Biopsy on the right side. Risk Values: Kena 5 year model risk: 1.5%. NCI Lifetime model risk: 11.1%. Prior Study Comparison: 05/23/2021 Bilateral Screening Mammogram, [facility]. 05/25/2022 Bilateral MG screening mammo w CAD, [facility]. 07/11/2023 Bilateral MG screening mammo w CAD, [facility]. Tissue Density: The breasts are heterogeneously dense, which may obscure small masses. Findings: Analyzed By CAD. There is no suspicious group of microcalcifications or new suspicious mass in either breast. Overall Assessment: Benign, BI-RAD 2 Management: Screening Mammogram of both breasts in 1 year. . Patient should continue monthly self-breast exams. A clinical breast exam by your physician is recommended on an annual basis. This exam should not preclude additional follow-up of suspicious palpable abnormalities. Note on Kena scores and lifetime risk: 1. A Kena score greater than 3% is considered moderate risk. If this is the case, consider specialist referral to assess eligibility for a risk reducing agent. 2. If overall lifetime risk for the development of breast cancer is 20% or higher, the patient may qualify for future screening with alternating mammogram and breast MRI. [facility], , 07/23/2024 9:51 AM. Electronically signed and approved by: Josh Combs M.D. Radiologis
== END | disposition home or self-care (01) ==
LOC: RADMAMWWP 09:16
PROVIDERS: ATTEND Surgery
DX: Z12.31 Encounter for screening mammogram for malignant neoplasm of breast (principal); R92.333 Mammographic heterogeneous density, bilateral breasts; Z78.0 Asymptomatic menopausal state
CPT/HCPCS: 77067